=== PATIENT | female | born 1945 | race Caucasian/White ===

== ENCOUNTER 2017-06-04 14:33 | Emergency (ER) | payer MEDICARE, BC ==
[~2017-06-04] VITALS: Ht 157.5 cm; Wt 57.0 kg
[~2017-06-04 14:33] MED LIST: AMIO200T42 PO; ASPI-496 PO; ATEN100T PO; ATEN50TA41 PO; B12 IM; GLYB5TAB3 PO; METF10002 PO; METH10TA6 PO; MULT-658 PO; PARI1CAP3 PO; PARI2CAP3 PO; PIOG30TA4 PO; RIVA15TA PO; RIVA20TA PO; SPIR25TA3 PO; TRIA1TAB5 PO; VERA120T74 PO; VERA40TA PO
[2017-06-04] MEDS ORDERED: TRIA1TAB3 PO (14:48)
[2017-06-04] MEDS ORDERED: ASPI-650 PO (14:48)
[2017-06-04] MEDS ORDERED: MECLIZINE CHEWABLE 25 MG TAB PO ONE (15:00)
[2017-06-04] MEDS ORDERED: SODIUM CHLORIDE 0.9% 1,000ML IVBOLUS ONE (15:00)
[2017-06-04] MEDS ORDERED: SODIUM CHLORIDE FLUSH 10ML SYR IVF ONE (15:00)
[2017-06-04 15:29] LABS: BLOOD UREA NITROGEN 24 mg/dL (7-18)
[2017-06-04] MEDS ORDERED: MECLIZINE CHEWABLE 25 MG TAB ONE (15:31)
[2017-06-04 17:16] VITALS: BP 149/75
== END 2017-06-04 17:56 | disposition home or self-care (01) ==
LOC: ED 16:31
DX: H81.10 Benign paroxysmal vertigo, unspecified ear (principal); E11.9 Type 2 diabetes mellitus without complications; I10 Essential (primary) hypertension; K21.9 Gastro-esophageal reflux disease without esophagitis; I48.91 Unspecified atrial fibrillation; E78.5 Hyperlipidemia, unspecified; E05.00 Thyrotoxicosis with diffuse goiter without thyrotoxic crisis or storm; Z95.0 Presence of cardiac pacemaker; F17.200 Nicotine dependence, unspecified, uncomplicated
CPT/HCPCS: 36415; 70450; 80048; 82040; 83735; 85025; 93005

== ENCOUNTER → 2017-11-25 | Outpatient (CLI) | payer MEDICARE, BC ==
[~2017-11-25] MED LIST changes: +ASPI-650 PO; +TRIA1TAB3 PO
== END | disposition home or self-care (01) ==
LOC: CFH 09:58
PROVIDERS: ATTEND Family Medicine
DX: Z12.31 Encounter for screening mammogram for malignant neoplasm of breast (principal)
CPT/HCPCS: 77063; G0202

== ENCOUNTER 2017-12-31 20:46 | Emergency (ER) | payer MEDICARE, BC ==
[~2017-12-31] VITALS: Ht 162.6 cm; Wt 60.0 kg
[2017-12-31 20:49] VITALS: BP 163/107
[2017-12-31 21:22] LABS: BASOPHILS # (AUTO) 0.08 x10^3/uL (0-0.1); BASOPHILS % (AUTO) 1 % (0-1); EOSINOPHILS # (AUTO) 0.36 x10^3/uL (0-0.4); EOSINOPHILS % (AUTO) 4 % (1-7); LYMPHOCYTES # (AUTO) 3.75 x10^3/uL (1-3.4); LYMPHOCYTES % (AUTO) 37 % (22-44); MD NO; MEAN CORPUSCULAR HEMOGLOBIN 32.3 pg (27.0-34.8); MEAN CORPUSCULAR HGB CONC 34.7 g/dL (32.4-35.8); MEAN PLATELET VOLUME 9.2 fL (7.4-10.4); MONOCYTES # (AUTO) 0.74 x10^3/uL (0.2-0.8); MONOCYTES % (AUTO) 7 % (2-9); NEUTROPHILS # (AUTO) 5.28 x10^3/uL (1.8-6.8); NEUTROPHILS % (AUTO) 52 % (42-75); PLATELET COUNT 192 x10^3/uL (130-400); RED BLOOD COUNT 4.82 x10^6/uL (3.82-5.3); RED CELL DISTRIBUTION WIDTH 12.3 % (9.6-15.2)
[2017-12-31 21:34] LABS: ALBUMIN 3.4 g/dL (3.4-5.0); ANION GAP 15 mmol/L (5-15); CALCIUM 9.3 mg/dL (8.5-10.1); CHLORIDE 101 mmol/L (98-107); CREATININE 1.09 mg/dL (0.55-1.02)
[2017-12-31 21:43] LABS: FREE T4 (FREE THYROXINE) 1.88 ng/dL (0.76-1.46); THYROID STIMULATING HORMONE 0.029 mIU/L (0.358-3.740)
== END 2017-12-31 22:07 | disposition home or self-care (01) ==
LOC: ED 21:25
DX: I48.0 Paroxysmal atrial fibrillation (principal); R00.2 Palpitations; K21.9 Gastro-esophageal reflux disease without esophagitis; E78.5 Hyperlipidemia, unspecified; E11.9 Type 2 diabetes mellitus without complications; I10 Essential (primary) hypertension; Z90.49 Acquired absence of other specified parts of digestive tract; F17.200 Nicotine dependence, unspecified, uncomplicated; Z88.8 Allergy status to other drugs, medicaments and biological substances
CPT/HCPCS: 36415; 80048; 82040; 83735; 84439; 84443; 85025; 93005; 99285

== ENCOUNTER → 2018-05-25 | Outpatient (CLI) | payer MEDICARE, BC | END | disposition home or self-care (01) | LOC: CFH 12:42 | PROVIDERS: ATTEND Ophthalmology | DX: D31.62 Benign neoplasm of unspecified site of left orbit (principal) | CPT/HCPCS: 70480 ==

== ENCOUNTER → 2018-08-28 | Outpatient (CLI) | payer MEDICARE, BC ==
[~2018-08-28] MED LIST changes: -SPIR25TA3 PO; +SPIR25TA5 PO
== END | disposition home or self-care (01) ==
LOC: CFH 11:37
PROVIDERS: ATTEND Internal Medicine Cardiovascular Disease
DX: I49.9 Cardiac arrhythmia, unspecified (principal); I48.0 Paroxysmal atrial fibrillation; I48.91 Unspecified atrial fibrillation; R55 Syncope and collapse; Z95.0 Presence of cardiac pacemaker
CPT/HCPCS: 71046

== ENCOUNTER 2018-12-04 14:30 | Outpatient (CLI) | payer MEDICARE, BC | END 2018-12-04 23:59 | disposition home or self-care (01) | LOC: CVU 14:30 | PROVIDERS: ATTEND Psychiatry & Neurology Neurology | DX: I08.0 Rheumatic disorders of both mitral and aortic valves (principal); G45.3 Amaurosis fugax; I48.91 Unspecified atrial fibrillation; E11.9 Type 2 diabetes mellitus without complications; I10 Essential (primary) hypertension; F17.200 Nicotine dependence, unspecified, uncomplicated | CPT/HCPCS: 0399T; 93306 ==

== ENCOUNTER → 2019-01-04 | Outpatient (CLI) | payer MEDICARE, BC ==
[~2019-01-04] MED LIST changes: +REGADENOSON 0.4 MG/5 ML SYRINGE ONE
== END | disposition home or self-care (01) ==
LOC: CFH 07:56
PROVIDERS: ATTEND Internal Medicine Cardiovascular Disease
DX: I48.0 Paroxysmal atrial fibrillation (principal)
CPT/HCPCS: 78452; 93017; A9502; J2785

== ENCOUNTER → 2019-03-13 | Outpatient (CLI) | payer MEDICARE, BC ==
[~2019-03-13] MED LIST changes: +ACET325T14 PO; +APIX5TAB PO; +OMNIPAQUE 350 MG/ML, 150 ML BOTTLE ONE; -REGADENOSON 0.4 MG/5 ML SYRINGE ONE; -VERA120T74 PO; +VERA120T8 PO
== END | disposition home or self-care (01) ==
LOC: CFH 09:38
PROVIDERS: ATTEND Internal Medicine Cardiovascular Disease
DX: I11.9 Hypertensive heart disease without heart failure (principal); I48.0 Paroxysmal atrial fibrillation; I70.0 Atherosclerosis of aorta; E78.5 Hyperlipidemia, unspecified; E11.9 Type 2 diabetes mellitus without complications; K21.9 Gastro-esophageal reflux disease without esophagitis; Z90.49 Acquired absence of other specified parts of digestive tract; Z95.0 Presence of cardiac pacemaker; Z90.710 Acquired absence of both cervix and uterus
CPT/HCPCS: 71046; 75572; 82565; Q9967

== ENCOUNTER 2019-03-14 06:27 | Observation (INO) | payer MEDICARE, BC ==
[2019-03-13 11:42] VITALS: BP 125/65
[2019-03-13 12:10] LABS: BASOPHILS # (AUTO) 0.05 x10^3/uL (0-0.1); BASOPHILS % (AUTO) 1 % (0-1); EOSINOPHILS % (AUTO) 2 % (1-7); LYMPHOCYTES # (AUTO) 2.74 x10^3/uL (1-3.4); LYMPHOCYTES % (AUTO) 30 % (22-44); MD NO; MEAN CORPUSCULAR HEMOGLOBIN 33.2 pg (27.0-34.8); MEAN CORPUSCULAR HGB CONC 34.6 g/dL (32.4-35.8); MEAN CORPUSCULAR VOLUME 95.9 fL (80-100); MEAN PLATELET VOLUME 9.4 fL (7.4-10.4); MONOCYTES # (AUTO) 0.56 x10^3/uL (0.2-0.8); MONOCYTES % (AUTO) 6 % (2-9); NEUTROPHILS # (AUTO) 5.61 x10^3/uL (1.8-6.8); NEUTROPHILS % (AUTO) 61 % (42-75); PLATELET COUNT 189 x10^3/uL (130-400); RED CELL DISTRIBUTION WIDTH 12.6 % (9.6-15.2)
[2019-03-13 12:17] LABS: CHLORIDE 101 mmol/L (98-107)
[2019-03-13 12:19] LABS: PROTHROMBIN TIME 10.5 Seconds (9.6-11.5)
[2019-03-13 12:24] LABS: ALANINE AMINOTRANSFERASE 75 U/L (12-78); ALKALINE PHOSPHATASE 119 U/L (45-117); ANION GAP 10 mmol/L (5-15); BILIRUBIN,TOTAL 0.5 mg/dL (0.2-1.0); CALCIUM 9.9 mg/dL (8.5-10.1); CREATININE 1.07 mg/dL (0.55-1.02); TOTAL PROTEIN 7.4 g/dL (6.4-8.2)
[~2019-03-14] VITALS: Ht 157.5 cm; Wt 66.2 kg
[~2019-03-14 06:27] MED LIST changes: -ACET325T14 PO; -APIX5TAB PO; -OMNIPAQUE 350 MG/ML, 150 ML BOTTLE ONE
[2019-03-14] MEDS ORDERED: SODIUM CHLORIDE 0.9% 1,000 ML IV SCH (06:38)
[2019-03-14] MEDS ORDERED: SODIUM CHLORIDE 0.9% 1,000 ML IV ONE (07:00)
[2019-03-14] MEDS ORDERED: PROPOFOL 50 ML ONE (07:46)
[2019-03-14] MEDS ORDERED: FENTANYL PF 250 MCG/5ML ONE (07:46)
[2019-03-14] MEDS ORDERED: ROCURONIUM 10 MG/ML,10ML ONE (08:01)
[2019-03-14] MEDS ORDERED: SUCCINYLCHOLINE 20 MG/ML, 10ML ONE (08:01)
[2019-03-14] MEDS ORDERED: DEXAMETHASONE 4 MG/ML, 1ML ONE (08:01)
[2019-03-14] MEDS ORDERED: ONDANSETRON 2MG/ML, 2ML ONE ×2 (08:01→13:15)
[2019-03-14] MEDS ORDERED: APIXABAN 5 MG TABLET ONE (08:14)
[2019-03-14] MEDS ORDERED: PROTAMINE SULFATE 10 MG/ML, 5ML ONE (08:15)
[2019-03-14] MEDS ORDERED: LIDOCAINE 1%, 20ML ONE (08:15)
[2019-03-14] MEDS ORDERED: ISOPROTERENOL 0.2MG/ML, 5ML ONE (09:09)
[2019-03-14] MEDS ORDERED: ACETAMINOPHEN 325 MG TABLET PO PRN (12:30)
[2019-03-14] MEDS ORDERED: PROMETHAZINE 12.5 MG SUPP PR PRN (12:30)
[2019-03-14] MEDS ORDERED: FENTANYL PF 100 MCG/2ML IV PRN (12:30)
[2019-03-14] MEDS ORDERED: hydrALAzine 20 MG/ML, 1ML IV PRN (12:30)
[2019-03-14] MEDS ORDERED: EPHEDRINE 50 MG/ML, 1ML IM PRN (12:30)
[2019-03-14] MEDS ORDERED: DIPHENHYDRAMINE 50 MG/ML, 1ML IVPush PRN (12:30)
[2019-03-14] MEDS ORDERED: PROMETHAZINE 25 MG SUPP PR PRN (12:30)
[2019-03-14] MEDS ORDERED: MEPERIDINE/PF 25MG/0.5ML IVPush PRN (12:30)
[2019-03-14] MEDS ORDERED: EPHEDRINE 50 MG/ML, 1ML IVPush PRN (12:30)
[2019-03-14] MEDS ORDERED: PROMETHAZINE 25 MG/ML, 1ML IV PRN (12:30)
[2019-03-14] MEDS ORDERED: ONDANSETRON 2MG/ML, 2ML IV PRN (12:30)
[2019-03-14] MEDS ORDERED: ONDANSETRON ODT 8 MG PO PRN (12:30)
[2019-03-14] MEDS ORDERED: METOPROLOL 1 MG/ML, 5ML IV PRN (12:30)
[2019-03-14] MEDS ORDERED: MORPHINE SULFATE 4 MG/ML, 1ML IVPush PRN (12:30)
[2019-03-14] MEDS ORDERED: DIAZEPAM 5 MG/ML, 2ML IVPush PRN (12:30)
[2019-03-14] MEDS ORDERED: MIDAZOLAM 1 MG/ML, 2ML IV PRN (12:30)
[2019-03-14] MEDS ORDERED: OXYcodone 5 MG/5 ML ORAL.SOL UDC PO PRN (12:30)
[2019-03-14] MEDS: APIXABAN 5 MG TABLET PO SCH ×2 (13:31→21:27)
[2019-03-14 14:45] VITALS: BP 125/75
[2019-03-14] MEDS: ACETAMINOPHEN 325 MG TABLET PO PRN (15:21)
[2019-03-14 19:14] VITALS: BP 114/74
[2019-03-14] MEDS: metFORMIN 500 MG TABLET PO SCH (21:25)
[2019-03-15] MEDS ORDERED: MELATONIN 3 MG TABLET PO PRN (01:00)
[2019-03-15 01:33] VITALS: BP 140/67
[2019-03-15 03:12] VITALS: BP 128/66
[2019-03-15] MEDS: ACETAMINOPHEN 325 MG TABLET PO PRN ×2 (03:34→08:35)
[2019-03-15] MEDS: APIXABAN 5 MG TABLET PO SCH (08:35)
[2019-03-15 08:49] VITALS: BP 113/71
[2019-03-15] MEDS: metFORMIN 500 MG TABLET PO SCH (09:00)
[2019-03-15] MEDS ORDERED: AMIODARONE 200 MG TABLET PO SCH (09:00)
[2019-03-15] MEDS ORDERED: ASPIRIN 81 MG TABLET EC PO SCH (09:00)
[2019-03-15] MEDS ORDERED: ATENOLOL 100 MG TABLET PO SCH (09:00)
[2019-03-15] MEDS ORDERED: GlyBURIDE 5 MG TABLET PO SCH (09:00)
[2019-03-15] MEDS ORDERED: ACET325T14 PO (09:24)
[2019-03-15 13:10] VITALS: BP 102/67
[2019-03-15] MEDS ORDERED: APIX5TAB PO (15:02)
== END 2019-03-15 15:21 | disposition home or self-care (01) ==
LOC: CACL 06:27 → EDSTATUS 08:00 → ORIP 11:55 → 5SO 14:07 → DCLOUNGE 03-15 14:56
PROVIDERS: ADMIT Internal Medicine Cardiovascular Disease; ATTEND Internal Medicine Cardiovascular Disease
DX: I48.0 Paroxysmal atrial fibrillation (principal); I48.92 Unspecified atrial flutter; E11.9 Type 2 diabetes mellitus without complications; I10 Essential (primary) hypertension; E05.90 Thyrotoxicosis, unspecified without thyrotoxic crisis or storm; Z95.0 Presence of cardiac pacemaker; E78.5 Hyperlipidemia, unspecified
CPT/HCPCS: 36415; 80053; 85025; 85347; 85610; 85730; 93005; 93308; 93312; 93321; 93325; 93613; 93623; 93655; 93656; 93657; 93662; C1730; C1731; C1759; C1766; C1893; C1894; C2630; G0378; J0330; J1100; J2405; J2704; J2720; J3010; J3490

== ENCOUNTER 2019-12-15 05:32 | Emergency (ER) | payer MEDICARE, BC ==
[~2019-12-15] VITALS: Ht 157.5 cm; Wt 53.7 kg
[~2019-12-15 05:32] MED LIST changes: +ACET325T14 PO; +APIX5TAB PO
[2019-12-15] MEDS ORDERED: DILTIAZEM 5 MG/ML, 5ML ONE (05:58)
[2019-12-15] MEDS ORDERED: DILTIAZEM 5 MG/ML, 5ML IV ONE (06:00)
--- NOTE | 2019-12-15 06:01 | NUR ---
PT RAPID A FIB WITH RVR. PT RATE UP TO 205 BPM. MD CONSULTED. BY THE TIME THIS RN ENTERED ROOM WITH DILT PT HAD SLOWED TO 64BPM. PT NOW DENIES COMPLAINTS. THEN TO BEDSIDE FOR EVAL.
--- NOTE | 2019-12-15 06:14 | NUR ---
HOLDING DILT AT THIS TIME. OKAY TO GIVE IF HR RETURNS TO A FIB W/ RVR PER MD.
[2019-12-15 06:17] VITALS: BP 112/65
--- NOTE | 2019-12-15 06:20 | NUR ---
TECH AT BEDSIDE FO REPEAT EKG
[2019-12-15 06:41] LABS: BASOPHILS # (AUTO) 0.01 x10^3/uL (0-0.1); BASOPHILS % (AUTO) 0 % (0-1); EOSINOPHILS # (AUTO) 0.05 x10^3/uL (0-0.4); EOSINOPHILS % (AUTO) 1 % (1-7); LYMPHOCYTES # (AUTO) 1.57 x10^3/uL (1-3.4); LYMPHOCYTES % (AUTO) 20 % (22-44); MD NO; MEAN CORPUSCULAR HEMOGLOBIN 32.4 pg (27.0-34.8); MEAN CORPUSCULAR HGB CONC 33.9 g/dL (32.4-35.8); MEAN CORPUSCULAR VOLUME 95.4 fL (80-100); MEAN PLATELET VOLUME 9.4 fL (7.4-10.4); MONOCYTES # (AUTO) 0.68 x10^3/uL (0.2-0.8); MONOCYTES % (AUTO) 9 % (2-9); NEUTROPHILS # (AUTO) 5.42 x10^3/uL (1.8-6.8); NEUTROPHILS % (AUTO) 70 % (42-75); PLATELET COUNT 157 x10^3/uL (130-400); RED BLOOD COUNT 5.17 x10^6/uL (3.82-5.3); RED CELL DISTRIBUTION WIDTH 12.2 % (9.6-15.2)
[2019-12-15 06:53] LABS: ALBUMIN 3.7 g/dL (3.4-5.0); ANION GAP 12 mmol/L (5-15); CALCIUM 10.5 mg/dL (8.5-10.1); CHLORIDE 101 mmol/L (98-107); INTERNATIONAL NORMALIZED RATIO 1.04 (0.93-1.1)
[2019-12-15 06:57] LABS: ALANINE AMINOTRANSFERASE 105 U/L (12-78); ALKALINE PHOSPHATASE 102 U/L (45-117); BILIRUBIN,TOTAL 1.5 mg/dL (0.2-1.0); CREATININE 0.95 mg/dL (0.55-1.02); TOTAL PROTEIN 7.5 g/dL (6.4-8.2)
--- NOTE | 2019-12-15 07:27 | NUR ---
DISCHARGE INSTRUCTIONS REVIEWED.
== END 2019-12-15 07:51 | disposition home or self-care (01) ==
LOC: ED 07:07
DX: I48.0 Paroxysmal atrial fibrillation (principal); I10 Essential (primary) hypertension; E11.9 Type 2 diabetes mellitus without complications; I48.91 Unspecified atrial fibrillation; K21.9 Gastro-esophageal reflux disease without esophagitis; F17.200 Nicotine dependence, unspecified, uncomplicated; Z95.0 Presence of cardiac pacemaker; Z90.710 Acquired absence of both cervix and uterus; Z90.49 Acquired absence of other specified parts of digestive tract
CPT/HCPCS: 36415; 71045; 80053; 85025; 85610; 85730; 93005; 99284

== ENCOUNTER → 2021-05-18 | Outpatient (CLI) | payer MEDICARE, BC ==
[~2021-05-18] MED LIST changes: +ASPI-1026 PO; -ASPI-650 PO; +EMPA10TA PO; +METO50TA82 PO; +MULT-249 PO; -PIOG30TA4 PO; +PIOG30TA68 PO; +SOTA80TA PO
== END | disposition home or self-care (01) ==
LOC: CFH 13:08
PROVIDERS: ATTEND Internal Medicine
DX: Z12.2 Encounter for screening for malignant neoplasm of respiratory organs (principal); R91.8 Other nonspecific abnormal finding of lung field; F17.218 Nicotine dependence, cigarettes, with other nicotine-induced disorders
CPT/HCPCS: 71271